=== PATIENT | female | born 1980 | race Caucasian/White ===

== ENCOUNTER 2021-06-17 09:52 | Emergency (ER) | payer MEDICAID ==
[~2021-06-17] VITALS: Ht 157.5 cm; Wt 68.2 kg
[2021-06-17 09:57] VITALS: BP 130/70
[2021-06-17] MEDS ORDERED: CYCL-1 PO (11:58)
== END 2021-06-17 12:11 | disposition home or self-care (01) ==
LOC: ER 09:53
DX: M62.830 Muscle spasm of back (principal); M25.561 Pain in right knee; M54.5 Low back pain; G89.29 Other chronic pain; Z79.899 Other long term (current) drug therapy
CPT/HCPCS: 99283